=== PATIENT | male | born 1965 | race Caucasian/White ===

== ENCOUNTER → 2016-07-02 | Outpatient (CLI) | payer BC | LOC: EMI 09:26 | DX: M51.34 Other intervertebral disc degeneration, thoracic region (principal); M54.2 Cervicalgia; M54.16 Radiculopathy, lumbar region; M48.02 Spinal stenosis, cervical region; M51.24 Other intervertebral disc displacement, thoracic region; M47.897 Other spondylosis, lumbosacral region | CPT/HCPCS: 72141; 72146; 72148 ==